=== PATIENT | female | born 1945 | race Caucasian/White ===

== ENCOUNTER → 2019-01-11 | Outpatient (REF) | LOC: M LAB LCGH 13:30 | PROVIDERS: ATTEND Surgery | DX: D17.1 Benign lipomatous neoplasm of skin and subcutaneous tissue of trunk (principal); D17.21 Benign lipomatous neoplasm of skin and subcutaneous tissue of right arm; D17.24 Benign lipomatous neoplasm of skin and subcutaneous tissue of left leg; D17.23 Benign lipomatous neoplasm of skin and subcutaneous tissue of right leg ==

== ENCOUNTER → 2019-03-19 | Outpatient (REF) | payer MEDICARE | LOC: M LAB REF 16:58 | PROVIDERS: ATTEND Physician Assistant | DX: J44.1 Chronic obstructive pulmonary disease with (acute) exacerbation (principal) ==

== ENCOUNTER → 2020-07-09 | Outpatient (CLI) | payer MEDICARE ==
[2020-07-09 12:08] LABS: BLOOD UREA NITROGEN 15 MG/DL (7-18); CREATININE FOR GFR 0.71 MG/DL (0.55-1.30); GLOMERULAR FILTRATION RATE > 60.0 (>39)
== END ==
LOC: M LAB 10:22
PROVIDERS: ATTEND Internal Medicine Pulmonary Disease
DX: J43.1 Panlobular emphysema (principal)

== ENCOUNTER → 2024-10-10 | Outpatient (REF) | payer MEDICARE | LOC: M LAB REF 17:03 | PROVIDERS: ATTEND Internal Medicine Pulmonary Disease | DX: J44.9 Chronic obstructive pulmonary disease, unspecified (principal) ==

== ENCOUNTER → 2025-03-01 | Outpatient (REF) | payer MEDICARE | LOC: M LAB REF 12:30 | PROVIDERS: ATTEND Internal Medicine Pulmonary Disease | DX: R05.9 Cough, unspecified (principal) ==